=== PATIENT | female | born 1995 | race Hispanic/Latino ===

== ENCOUNTER 2021-05-19 15:35 | Emergency (ER) | payer SELFPAY ==
[~2021-05-19] VITALS: Ht 157.5 cm; Wt 104.3 kg
[2021-05-19] MEDS ORDERED: CASIRIVIMAB/IMDEVIMAB 10 ML in SODIUM CHLORIDE 0.9% 100 ML IV ONE (16:00)
[2021-05-19] MEDS ORDERED: ACETAMINOPHEN 325 MG TAB PO ONE (16:30)
== END 2021-05-19 17:30 | disposition home or self-care (01) ==
LOC: EDSEX 15:35 → EDBD 15:35 → ER 15:50
DX: R50.9 Fever, unspecified (principal); R06.02 Shortness of breath; R05 Cough; U07.1 COVID-19; Z85.89 Personal history of malignant neoplasm of other organs and systems
CPT/HCPCS: 99283; J7050; U0002